=== PATIENT | female | born 1950 | race African-American/Black ===

== ENCOUNTER 2017-02-24 12:07 | Inpatient (IN) | payer MEDICARE, OTHER ==
[~2017-02-24] VITALS: Ht 162.6 cm; Wt 85.3 kg
[~2017-02-24 12:07] MED LIST: ADVAIR 250-501 EACH INH; ASPIRIN81 MG ORAL; COLACE100 MG ORAL; COMBIGAN EYE DRO5 ML OP; HYDROCHLOROTH12.5 M2 ORAL; IBUPROFEN200 MG ORAL; LEVAQUIN250 M1 ORAL; LEVAQUIN500 MG ORAL; MEDROL DOSEPAK4 MG ORAL; METFORMIN HCL500 M1 ORAL; METHADONE HCL10 MG PO; MIRALAX17 GM ORAL; MUCINEX600 MG ORAL; OXYCODONE HCL30 MG ORAL; PROAIR HFA8.5 GM INH; PROMETHAZINE-C118 M1 ORAL; PROTONIX40 MG ORAL; SENOKOT8.6 MG ORAL; SPIRIVA18 MCG INH
[2017-02-24 13:53] VITALS: BP 129/81
[2017-02-24 14:00] LABS: APPEARANCE,URINE CLEAR; EOSINOPHILS % (AUTO) 2.2 % (0.0-3.0); KETONES,URINE NEGATIVE (NEGATIVE); LYMPHOCYTES % (AUTO) 33.1 % (20.0-45.0); MEAN CORPUSCULAR HEMOGLOBIN 28.3 PG (27.0-31.0); MEAN CORPUSCULAR HGB CONC 31.3 G/DL (32.0-36.0); MEAN CORPUSCULAR VOLUME 90 FL (80-99); MEAN PLATELET VOLUME 6.2 FL (6.5-10.1); MONOCYTES % (AUTO) 6.6 % (1.0-10.0); NITRITE,URINE NEGATIVE (NEGATIVE); PH,URINE 6.5 (4.5-8.0); PLATELET COUNT 307 K/UL (150-450); PROTEIN,URINE NEGATIVE (NEGATIVE); RED BLOOD COUNT 4.97 M/UL (4.20-5.40); RED CELL DISTRIBUTION WIDTH 13.2 % (11.6-14.8); UROBILINOGEN,URINE NORMAL MG/DL (0.0-1.0); WHITE BLOOD COUNT 11.2 K/UL (4.8-10.8)
[2017-02-24] MEDS ORDERED: cefTRIAXone 1 GM in NS 55 ML IVPB ONE (14:00)
[2017-02-24] MEDS ORDERED: Ipratropium 0.02% Inh Soln 2.5ml UD HHN ONE (14:00)
[2017-02-24] MEDS ORDERED: Albuterol ud Inhalation HHN ONE (14:00)
[2017-02-24] MEDS ORDERED: PredniSONE 20mg tab ORAL ONE (14:00)
--- NOTE | 2017-02-24 14:07 | Diagnostic Imaging Report ---
Indication: Shortness of breath Technique: Single portable AP view of the chest. Findings: Comparison: 11/26/15 The bones and extra pulmonary soft tissues, cardiomediastinal silhouette, pulmonary vasculature and parenchyma, and pleural surfaces remain unremarkable. IMPRESSION: Negative portable AP chest, unchanged.
[2017-02-24 14:09] LABS: LEUKOCYTE ESTERASE ,URINE 1+ (NEGATIVE)
[2017-02-24 14:10] LABS: BACTERIA,URINE OCCASIONAL /HPF; RBC,URINE 0-2 /HPF (0 - 2); SQUAMOUS EPITHELIAL CELL,UR OCCASIONAL /LPF (NONE/OCC)
[2017-02-24 14:13] LABS: TROPONIN I < 0.30 ng/mL (<=0.30)
[2017-02-24 14:14] LABS: ALANINE AMINOTRANSFERASE 20 U/L (3-33); ALBUMIN/GLOBULIN RATIO 1.3 (1.0-2.7); ANION GAP 13 (5-15); ASPARTATE AMINO TRANSFERASE 16 U/L (5-40); CALCIUM 9.2 mg/dL (8.6-10.2); CARBON DIOXIDE 28 mEQ/L (20-30); CHLORIDE 99 mEQ/L (98-107); CREATININE 0.6 mg/dL (0.5-0.9); GLOMERULAR FILTRATION RATE > 60 mL/min (>60); HEMOLYSIS 2; POTASSIUM 3.6 mEQ/L (3.4-4.9); SODIUM 140 mEQ/L (135-145); TOTAL PROTEIN 6.7 g/dL (6.6-8.7)
[2017-02-24 14:25] LABS: CKMB < 1.5 ng/mL (< 3.8)
--- NOTE | 2017-02-24 14:46 | Emergency Room Report ---
History of Present Illness General Chief Complaint: Dyspnea/Respdistress Source: Patient Present Illness HPI This patient has a history of COPD and CHF. She states that for the past 10 days she is having ongoing cough, congestion or sputum production and difficulty breathing. The patient states that she did see her primary care provider. She is placed on prednisone, azithromycin and does use breathing treatments at home. She states that her symptoms continue and are out of control. Patient denies fever or chills. She denies nausea or vomiting. She denies chest pain. She has no other complaints. Allergies: Coded Allergies: Dust (Verified Allergy, Mild, 04/18/11) METRONIDAZOLE (Verified Allergy, Mild, Itching, 11/18/14) LEVOFLOXACIN (Verified Adverse Reaction, Intermediate, 05/30/15) PROJECTILE VOMITING PER PATIENT STATEMENT. MORPHINE (Verified Adverse Reaction, Mild, 05/30/15) pain Patient History Past Medical History: see triage record, HTN, CA, CAD, CHF, asthma, COPD, other - HCV Past Surgical History: zaki Social History: Denies: alcohol use, drug use, smoking Last Menstrual Period: na Reviewed Nursing Documentation: PMH: Agreed, PSxH: Agreed Nursing Documentation-PMH Past Medical History: No History, Except For Hx Cardiac Problems: Yes - chf Hx Hypertension: Yes Hx Asthma: Yes Hx COPD: Yes Hx Diabetes: Yes Hx Cancer: No Hx Gastrointestinal Problems: Yes Hx Neurological Problems: No Hx Vertigo: Yes - fell 2 yrs ago Review of Systems All Other Systems: negative except mentioned in HPI Physical Exam Vital Signs Date Time Temp Pulse Resp B/P Pulse Ox O2 Delivery O2 Flow Rate FiO2 02/24/17 12:13 97.5 72 18 105/68 97 Room Air Sp02 EP Interpretation: reviewed, normal General Appearance: no apparent distress, alert, GCS 15, non-toxic Head: normocephalic, atraumatic Eyes: bilateral eye PERRL, bilateral eye normal inspection ENT: hearing grossly normal, normal pharynx, no angioedema, normal voice Neck: full range of motion, supple/symm/no masses Respiratory: chest non-tender, speaking full sentences, wheezing Cardiovascular #1: regular rate, rhythm, no edema Gastrointestinal: normal bowel sounds, non tender, soft, non-distended, no guarding, no rebound Rectal: deferred Musculoskeletal: back normal, gait/station normal, normal range of motion, non- tender Neurologic: alert, oriented x3, responsive, motor strength/tone normal, sensory intact, speech normal Psychiatric: judgement/insight normal, memory normal, mood/affect normal, no suicidal/homicidal ideation Skin: normal color, no rash, warm/dry, well hydrated Medical Decision Making Diagnostic Impression: Primary Impression: COPD exacerbation ER Course This patient presents with COPD exacerbation. The patient has had ongoing symptoms for the past 10 days that she feels worsening shortness of breath. She states she is also using nebulizer breathing treatments at home without relief. She was given breathing treatments here in the emergency department and steroids. I also gave broad-spectrum antibiotics. The patient does have wheezing on physical exam. I felt this patient should be admitted for further pulmonary hygiene and monitoring. Patient did remain stable emergency department. Labs Test 02/24/17 13:40 White Blood Count 11.2 K/UL (4.8-10.8) Red Blood Count 4.97 M/UL (4.20-5.40) Hemoglobin 14.1 G/DL (12.0-16.0) Hematocrit 44.9 % (37.0-47.0) Mean Corpuscular Volume 90 FL (80-99) Mean Corpuscular Hemoglobin 28.3 PG (27.0-31.0) Mean Corpuscular Hemoglobin Concent 31.3 G/DL (32.0-36.0) Red Cell Distribution Width 13.2 % (11.6-14.8) Platelet Count 307 K/UL (150-450) Mean Platelet Volume 6.2 FL (6.5-10.1) Neutrophils (%) (Auto) 57.0 % (45.0-75.0) Lymphocytes (%) (Auto) 33.1 % (20.0-45.0) Monocytes (%) (Auto) 6.6 % (1.0-10.0) Eosinophils (%) (Auto) 2.2 % (0.0-3.0) Basophils (%) (Auto) 1.0 % (0.0-2.0) Urine Color Pale yellow Urine Appearance Clear Urine pH 6.5 (4.5-8.0) Urine Specific [place] 1.015 (1.005-1.035) Urine Protein Negative (NEGATIVE) Urine Glucose (UA) Negative (NEGATIVE) Urine Ketones Negative (NEGATIVE) Urine Occult Blood Negative (NEGATIVE) Urine Nitrite Negative (NEGATIVE) Urine Bilirubin Negative (NEGATIVE) Urine Urobilinogen Normal MG/DL (0.0-1.0) Urine Leukocyte Esterase 1+ (NEGATIVE) Urine RBC 0-2 /HPF (0 - 2) Urine WBC 2-4 /HPF (0 - 2) Urine Squamous Epithelial Cells Occasional /LPF Urine Bacteria Occasional /HPF (NONE) Sodium Level 140 mEQ/L (135-145) Potassium Level 3.6 mEQ/L (3.4-4.9) Chloride Level 99 mEQ/L (98-107) Carbon Dioxide Level 28 mEQ/L (20-30) Anion Gap 13 (5-15) Blood Urea Nitrogen 10 mg/dL (7-23) Creatinine 0.6 mg/dL (0.5-0.9) Estimat Glomerular Filtration Rate > 60 mL/min (>60) Glucose Level 96 mg/dL (74-106) Calcium Level 9.2 mg/dL (8.6-10.2) Total Bilirubin 0.6 mg/dL (0.0-1.2) Aspartate Amino Transf (AST/SGOT) 16 U/L (5-40) Alanine Aminotransferase (ALT/SGPT) 20 U/L (3-33) Alkaline Phosphatase 165 U/L (35-104) Total Creatine Kinase 73 U/L (26-140) Creatine Kinase MB < 1.5 ng/mL (< 3.8) Creatine Kinase MB Relative Index Troponin I < 0.30 ng/mL (<=0.30) Pro-B-Type Natriuretic Peptide 59 pg/mL (0-125) Total Protein 6.7 g/dL (6.6-8.7) Albumin 3.8 g/dL (3.5-5.2) Globulin 2.9 g/dL Albumin/Globulin Ratio 1.3 (1.0-2.7) EKG Diagnostic Results Rate: normal Rhythm: NSR ST Segments: no acute changes Rhythm Strip Diag. Results EP Interpretation: yes Rate: 60's Rhythm: NSR, no PVC's, no ectopy Chest X-Ray Diagnostic Results EP Interpretation: Yes Findings: no consolidation, no effusion, no pneumothorax, no acute cardiopulmonary disease Number of Views: 1 Last Vital Signs Date Time Temp Pulse Resp B/P Pulse Ox O2 Delivery O2 Flow Rate FiO2 02/24/17 14:10 67 18 Room Air 02/24/17 14:10 100 02/24/17 13:53 129/81 02/24/17 12:13 97.5 Disposition: ADMITTED INPATIENT Condition: Serious Referrals: DOYLE MENJIVAR (PCP) MENDOZA ROJAS D.O. February 24, 2017 14:46
[2017-02-24] MEDS ORDERED: NS 55 ML IV ONE (15:08)
[2017-02-24] MEDS ORDERED: Nitroglycerin Subl 0.4mg tab (Bottle Of 25) SL PRN (16:00)
[2017-02-24] MEDS ORDERED: Promethazine/Codeine 5ml UD ORAL PRN (16:00)
[2017-02-24] MEDS ORDERED: Miralax 17gm pkt ORAL PRN (16:00)
[2017-02-24] MEDS ORDERED: LORazepam Inj 2mg/ml 1ml IV PRN (16:00)
[2017-02-24] MEDS: Promethazine/Codeine 5ml UD ORAL PRN ×3 (16:51→22:59)
[2017-02-24] MEDS ORDERED: Promethazine/Codeine 5ml UD ORAL ONE (17:00)
[2017-02-24] MEDS: NovoLOG Insulin Flexpen SUBQ SCH ×2 (17:36→21:49)
[2017-02-24 17:44] VITALS: BP 111/43
[2017-02-24] MEDS: Solu-MEDROL 125mg Inj IV SCH ×2 (18:40→23:48)
[2017-02-24] MEDS: Heparin 5000 units/ml inj SUBQ SCH (21:00)
[2017-02-24] MEDS: Theophylline ER 100mg ORAL SCH (21:50)
--- NOTE | 2017-02-24 21:53 | History and Physical ---
History of Present Illness General Date patient seen: February 24, 2017 Reason for Hospitalization: Dyspnea/Respdistress Present Illness HPI 66 year old female with a history of COPD and CHF presented to [facility] [place] [facility] [place] with CC of ongoing cough, congestion or sputum production and difficulty breathing. The patient states that she did see her primary care provider. She was placed on prednisone, azithromycin and does use breathing treatments at home. She states that her symptoms continue and are out of control. Patient denies fever or chills. She denies nausea or vomiting. She was diagnosed to have acute exacerbation of COPD and admitted for further evaluation. Allergies: Coded Allergies: Dust (Verified Allergy, Mild, 04/18/11) METRONIDAZOLE (Verified Allergy, Mild, Itching, 11/18/14) LEVOFLOXACIN (Verified Adverse Reaction, Intermediate, 05/30/15) PROJECTILE VOMITING PER PATIENT STATEMENT. MORPHINE (Verified Adverse Reaction, Mild, 05/30/15) pain Medication History Scheduled Aspirin* (Aspirin*), 81 MG ORAL DAILY, (Reported) Docusate Sodium* (Colace*), 100 MG ORAL EVERY 12 HOURS Fluticasone/Salmeterol (Advair 250-50 Diskus), 1 PUFF INH EVERY 12 HOURS Guaifenesin (Mucinex), 600 MG ORAL TWICE A DAY Hydrochlorothiazide* (Hydrochlorothiazide*), 12.5 MG ORAL DAILY, (Reported) Levofloxacin* (Levaquin*), 500 MG ORAL DAILY Levofloxacin* (Levaquin*), 250 MG ORAL DAILY Metformin Hcl* (Metformin Hcl*), 500 MG ORAL TWICE A DAY, (Reported) Methadone Hcl* (Methadone*), 10 MG PO HS, (Reported) Methylprednisolone (Methylprednisolone*), 4 MG ORAL .as directed Methylprednisolone (Methylprednisolone*), 4 MG ORAL .as directed Tiotropium Gustine* (Spiriva*), 1 PUFF INH DAILY Scheduled PRN Albuterol Sulfate* (Proair Hfa*), 2 PUFFS INH EVERY 6 HOURS PRN for Shortness of Breath, (Reported) Codeine/Promethazine Hcl* (Promethazine-Codeine Syrup*), 5 ML ORAL Q4H PRN for For Cough Oxycodone Hcl (Oxycodone Hcl), 20 MG ORAL Q6H PRN for For Pain, (Reported) Polyethylene Glycol* (Miralax*), 17 GM ORAL HSPRN PRN for Constipation Sennosides (Senokot), 1 TAB ORAL DAILY PRN for Constipation Miscellaneous Medications Brimonidine Tartrate/Timolol (Combigan Eye Drops), 5 ML OP, (Reported) Patient History Healthcare decision maker Resuscitation status Advanced Directive on File Past Medical/Surgical History Past Medical/Surgical History: (1) HTN (hypertension) (2) Diabetes mellitus (3) Chronic pain Review of Systems Respiratory: Reports: shortness of breath, sputum, wheezing All Other Systems: negative except mentioned in HPI Physical Exam Lines, tubes and drains: peripheral HEENT: normocephalic, atraumatic Neck: non-tender, normal alignment Respiratory/Chest: chest wall non-tender, lungs clear Cardiovascular/Chest: normal peripheral pulses, regular rhythm Abdomen: normal bowel sounds Genitourinary/Rectal: normal genital exam Last 24 Hour Vital Signs Date Time Temp Pulse Resp B/P Pulse Ox O2 Delivery O2 Flow Rate FiO2 02/24/17 17:45 97.5 83 15 111/43 97 Room Air 02/24/17 17:44 83 15 111/43 97 Room Air 02/24/17 14:25 69 20 100 Room Air 02/24/17 14:10 67 18 Room Air 02/24/17 14:10 67 18 100 Room Air 02/24/17 13:53 72 16 129/81 97 Room Air 02/24/17 12:30 72 18 Room Air 02/24/17 12:13 97.5 72 18 105/68 97 Room Air Laboratory Tests Test 02/24/17 13:40 White Blood Count 11.2 K/UL (4.8-10.8) H Red Blood Count 4.97 M/UL (4.20-5.40) Hemoglobin 14.1 G/DL (12.0-16.0) Hematocrit 44.9 % (37.0-47.0) Mean Corpuscular Volume 90 FL (80-99) Mean Corpuscular Hemoglobin 28.3 PG (27.0-31.0) Mean Corpuscular Hemoglobin Concent 31.3 G/DL (32.0-36.0) L Red Cell Distribution Width 13.2 % (11.6-14.8) Platelet Count 307 K/UL (150-450) Mean Platelet Volume 6.2 FL (6.5-10.1) L Neutrophils (%) (Auto) 57.0 % (45.0-75.0) Lymphocytes (%) (Auto) 33.1 % (20.0-45.0) Monocytes (%) (Auto) 6.6 % (1.0-10.0) Eosinophils (%) (Auto) 2.2 % (0.0-3.0) Basophils (%) (Auto) 1.0 % (0.0-2.0) Urine Color Pale yellow Urine Appearance Clear Urine pH 6.5 (4.5-8.0) Urine Specific [place] 1.015 (1.005-1.035) Urine Protein Negative (NEGATIVE) Urine Glucose (UA) Negative (NEGATIVE) Urine Ketones Negative (NEGATIVE) Urine Occult Blood Negative (NEGATIVE) Urine Nitrite Negative (NEGATIVE) Urine Bilirubin Negative (NEGATIVE) Urine Urobilinogen Normal MG/DL (0.0-1.0) Urine Leukocyte Esterase 1+ (NEGATIVE) H Urine RBC 0-2 /HPF (0 - 2) Urine WBC 2-4 /HPF (0 - 2) Urine Squamous Epithelial Cells Occasional /LPF Urine Bacteria Occasional /HPF (NONE) Sodium Level 140 mEQ/L (135-145) Potassium Level 3.6 mEQ/L (3.4-4.9) Chloride Level 99 mEQ/L (98-107) Carbon Dioxide Level 28 mEQ/L (20-30) Anion Gap 13 (5-15) Blood Urea Nitrogen 10 mg/dL (7-23) Creatinine 0.6 mg/dL (0.5-0.9) Estimat Glomerular Filtration Rate > 60 mL/min (>60) Glucose Level 96 mg/dL (74-106) Calcium Level 9.2 mg/dL (8.6-10.2) Total Bilirubin 0.6 mg/dL (0.0-1.2) Aspartate Amino Transf (AST/SGOT) 16 U/L (5-40) Alanine Aminotransferase (ALT/SGPT) 20 U/L (3-33) Alkaline Phosphatase 165 U/L (35-104) H Total Creatine Kinase 73 U/L (26-140) Creatine Kinase MB < 1.5 ng/mL (< 3.8) Creatine Kinase MB Relative Index Troponin I < 0.30 ng/mL (<=0.30) Pro-B-Type Natriuretic Peptide 59 pg/mL (0-125) Total Protein 6.7 g/dL (6.6-8.7) Albumin 3.8 g/dL (3.5-5.2) Globulin 2.9 g/dL Albumin/Globulin Ratio 1.3 (1.0-2.7) Height (Feet): 5 Height (Inches): 4.00 Weight (Pounds): 183 Medications Current Medications Medications (Trade) Dose Ordered Sig/Ranulfo Route PRN Reason Start Time Stop Time Status Last Admin Dose Admin Acetaminophen (Tylenol) 650 mg Q4H PRN ORAL fever 02/24/17 16:00 03/26/17 15:59 Albuterol/ Ipratropium (DuoNeb 0.5-3(2.5)mg/3ml) 3 ml Q4H PRN HHN dyspnea 02/24/17 16:00 03/01/17 15:59 Clonidine HCl (Catapres) 0.1 mg Q4H PRN ORAL sbp more than 160 02/24/17 16:00 03/26/17 15:59 Dextrose (Dextrose 50%) STAT PRN IV Hypoglycemia 02/24/17 16:00 03/26/17 15:59 Dextrose (Dextrose 50%) STAT PRN IV Hypoglycemia 02/24/17 16:00 03/26/17 15:59 Heparin Sodium (Porcine) (Heparin 5000 units/ml) 5,000 units EVERY 12 HOURS SUBQ 02/24/17 21:00 03/26/17 20:59 Insulin Aspart (NovoLOG) BEFORE MEALS AND HS SUBQ 02/24/17 17:30 03/26/17 17:29 02/24/17 21:49 Lorazepam (Ativan 2mg/ml 1ml) 0.5 mg Q4H PRN IV For Anxiety 02/24/17 16:00 03/03/17 15:59 Methylprednisolone Sodium Succinate (Solu-MEDROL) 60 mg EVERY 6 HOURS IV 02/24/17 18:00 03/26/17 17:59 02/24/17 18:40 Nitroglycerin (Ntg) 0.4 mg Q5M X 3 DOSES PRN SL Prn Chest Pain 02/24/17 16:00 03/26/17 15:59 Ondansetron HCl (Zofran) 4 mg Q6H PRN IVP Nausea & Vomiting 02/24/17 16:00 6/7/17 15:59 Polyethylene Glycol (Miralax) 17 gm HSPRN PRN ORAL Constipation FIRST LINE AGENT 02/24/17 16:00 03/26/17 15:59 Promethazine HCl/ Codeine (Phenergan with Codeine) 5 ml Q4H PRN ORAL For Cough 02/24/17 16:00 03/26/17 15:59 02/24/17 16:51 Sennosides (Senokot) 8.6 mg DAILYPRN PRN ORAL Constipation SECOND LINE AGENT 02/24/17 16:00 03/26/17 15:59 Temazepam (Restoril) 15 mg HSPRN PRN ORAL Insomnia 02/24/17 16:00 03/03/17 15:59 Theophylline (Matthew-Dur) 100 mg EVERY 12 HOURS ORAL 02/24/17 21:00 03/26/17 20:59 02/24/17 21:50 Assessment/Plan Problem List: (1) COPD exacerbation ICD Codes: J44.1 - Obstructive chronic bronchitis with exacerbation SNOMED: 420479397 (2) Chronic pain ICD Codes: G89.29 - Chronic pain SNOMED: 06730411 (3) HTN (hypertension) ICD Codes: I10 - HTN (hypertension) SNOMED: 95384094 (4) Diabetes mellitus ICD Codes: E11.9 - Diabetes mellitus SNOMED: 56839926 Assessment/Plan respiratory treatment IV steroids check sputum IV antibiotics monitor bp sliding scale diabetic diet DOYLE MENJIVAR February 24, 2017 21:53
[2017-02-25] VITALS: BP 117/65
[2017-02-25] MEDS: Promethazine/Codeine 5ml UD ORAL PRN ×4 (03:52→22:56)
[2017-02-25 04:00] VITALS: BP 120/72
[2017-02-25] MEDS: NovoLOG Insulin Flexpen SUBQ SCH ×4 (06:17→21:21)
[2017-02-25] MEDS: Solu-MEDROL 125mg Inj IV SCH ×4 (06:19→23:50)
[2017-02-25 07:05] LABS: ALANINE AMINOTRANSFERASE 19 U/L (3-33); ALBUMIN/GLOBULIN RATIO 1.3 (1.0-2.7); ANION GAP 13 (5-15); ASPARTATE AMINO TRANSFERASE 13 U/L (5-40); CALCIUM 9.4 mg/dL (8.6-10.2); CARBON DIOXIDE 27 mEQ/L (20-30); CHLORIDE 100 mEQ/L (98-107); CREATININE 0.7 mg/dL (0.5-0.9); GLOMERULAR FILTRATION RATE > 60 mL/min (>60); HEMOLYSIS 5; POTASSIUM 4.1 mEQ/L (3.4-4.9); SODIUM 140 mEQ/L (135-145); TOTAL PROTEIN 6.7 g/dL (6.6-8.7)
[2017-02-25 07:21] LABS: MEAN CORPUSCULAR HEMOGLOBIN 28.9 PG (27.0-31.0); MEAN CORPUSCULAR HGB CONC 32.3 G/DL (32.0-36.0); MEAN CORPUSCULAR VOLUME 89 FL (80-99); MEAN PLATELET VOLUME 5.8 FL (6.5-10.1); PLATELET COUNT 288 K/UL (150-450); RED BLOOD COUNT 4.87 M/UL (4.20-5.40); RED CELL DISTRIBUTION WIDTH 13.1 % (11.6-14.8); WHITE BLOOD COUNT 10.1 K/UL (4.8-10.8)
[2017-02-25 08:24] VITALS: BP 108/74
[2017-02-25] MEDS: Heparin 5000 units/ml inj SUBQ SCH ×2 (09:00→21:00)
[2017-02-25] MEDS: Theophylline ER 100mg ORAL SCH ×2 (09:18→21:20)
[2017-02-25 10:11] LABS: BAND NEUTROPHILS % (MANUAL) 0 % (0-8); BASOPHILS % (MANUAL) 0 % (0-2); EOSINOPHILS % (MANUAL) 0 % (0-3); LYMPHOCYTES % (MANUAL) 14 % (20-45); NEUTROPHILS % (MANUAL) 84 % (45-75); PLATELET ESTIMATE ADEQUATE; TOTAL CELLS COUNTED 100
[2017-02-25 10:12] LABS: PLATELET MORPHOLOGY NORMAL
[2017-02-25 12:00] VITALS: BP 117/70
--- NOTE | 2017-02-25 12:08 | Consultation ---
Consult Note Consult Note ID # [id number] NICK HERNANDEZ M.D. February 25, 2017 12:08
[2017-02-25] MEDS: Azithromycin 500 MG in D5W 275 ML IV SCH (13:49)
[2017-02-25 16:18] VITALS: BP 116/68
[2017-02-25 20:00] VITALS: BP 107/59
--- NOTE | 2017-02-25 22:29 | Consultation ---
DATE OF CONSULTATION: INFECTIOUS DISEASE CONSULTATION CONSULTING PHYSICIAN: Gilbert Koroma M.D. REQUESTING PHYSICIAN: Fernando Lang M.D. REASON FOR CONSULTATION: Evaluation of the patient for COPD exacerbation and antibiotic management. HISTORY OF PRESENT ILLNESS: The patient is a 66-year-old female with multiple medical problems and history of multiple admissions for COPD exacerbation, who came to the hospital with a chief complaint of shortness of breath, cough, and sputum production. Chest x-ray ordered, has been unremarkable. Infectious Disease consultation has been requested for further evaluation of the patient and antibiotic management of pneumonia/COPD exacerbation. PAST MEDICAL HISTORY: 1. COPD. 2. History of vertigo. 3. History of hypertension. 4. Asthma. 5. Obesity. 6. Status post cholecystectomy. 7. Uterine cancer. 8. Fibromyalgia. 9. Osteoarthritis. 10. Diabetes. 11. Schizophrenia. MEDICATIONS: The patient is currently off of antibiotics. She is receiving Solu-Medrol and received one dose of Rocephin in the emergency room. ALLERGIES: Levaquin, metronidazole, and morphine. FAMILY HISTORY: Noncontributory. REVIEW OF SYSTEMS: HEENT: No recent change in vision or hearing. Pulmonary: As mentioned above. Cardiovascular: No chest pain or palpitations. Gastrointestinal/Abdomen: No nausea or vomiting. Genitourinary: No dysuria. Musculoskeletal: As mentioned above. Neurologic: No seizure. PHYSICAL EXAMINATION: VITAL SIGNS: Pulse 66, respiratory rate 18, temperature 97.9 degrees, and blood pressure 108/74. HEENT: Mild pale conjunctivae. No icterus. NECK: No lymphadenopathy. CHEST: Mild wheeze at the base of the lungs. HEART: S1 and S2. ABDOMEN: Soft, obese, and nontender. EXTREMITIES: No cyanosis. NEUROLOGIC: Awake and alert. LABORATORY DATA: White blood cells 11.2 at the time of admission and today 10.2, hemoglobin 14, and platelets 288,000. UA unremarkable. BUN 12 and creatinine 0.7. ALT and AST are unremarkable. Alkaline phosphatase 172. Chest x-ray, no acute infiltrate. ASSESSMENT: The patient is a 66-year-old female with multiple medical problems, who has been admitted to this medical center with chronic obstructive pulmonary disease exacerbation/community-acquired pneumonia. The patient has quitted smoking currently. of atypical organisms at this time. PLAN: 1. We will start the patient on Zithromax for a total of five days. 2. Monitor CBC. 3. Monitor BMP. 4. Monitor chest x-ray. 5. Monitor sputum culture. 6. Based on the patient's clinical course and labs, we will do further recommendations. Thank you, Dr. Lang, for allowing me to participate in the care of this patient. I will follow the patient with you during this hospitalization. Gilbert Koroma M.D. DR: JOSTIN JOB#: [id number] CC:
[2017-02-25] MEDS: DuoNeb 0.5-3(2.5)mg/3ml neb HHN PRN (22:32)
[2017-02-26] VITALS: BP 118/93
[2017-02-26 04:00] VITALS: BP 116/79
[2017-02-26] MEDS: Solu-MEDROL 125mg Inj IV SCH ×3 (05:45→18:18)
[2017-02-26] MEDS: NovoLOG Insulin Flexpen SUBQ SCH ×4 (06:24→21:24)
[2017-02-26] MEDS: DuoNeb 0.5-3(2.5)mg/3ml neb HHN PRN (07:28)
[2017-02-26 08:00] VITALS: BP 114/63
[2017-02-26] MEDS: Promethazine/Codeine 5ml UD ORAL PRN ×2 (08:41→20:48)
[2017-02-26] MEDS: Heparin 5000 units/ml inj SUBQ SCH ×3 (08:41→21:23)
[2017-02-26] MEDS: Theophylline ER 100mg ORAL SCH ×3 (08:41→21:22)
--- NOTE | 2017-02-26 09:04 | Cardiology Report ---
APPROVED REPORT EKG Measurement Heart [id number] Normal sinus rhythm Normal ECG
[2017-02-26 12:00] VITALS: BP 120/66
[2017-02-26] MEDS: Azithromycin 500 MG in D5W 275 ML IV SCH (13:08)
[2017-02-26 16:00] VITALS: BP 113/65
--- NOTE | 2017-02-26 16:12 | Pulmonology Progress Note ---
Assessment/Plan Problems: (1) COPD exacerbation (2) Chronic pain (3) HTN (hypertension) (4) Diabetes mellitus Assessment/Plan respiratory treatment IV antibiotics iv sterids check cultures on theophyline Subjective Interval Events: late note 02/25/ still coughing , no feveres Allergies: Coded Allergies: Dust (Verified Allergy, Mild, 04/18/11) METRONIDAZOLE (Verified Allergy, Mild, Itching, 11/18/14) LEVOFLOXACIN (Verified Adverse Reaction, Intermediate, 05/30/15) PROJECTILE VOMITING PER PATIENT STATEMENT. MORPHINE (Verified Adverse Reaction, Mild, 05/30/15) pain Objective Last 24 Hour Vital Signs Date Time Temp Pulse Resp B/P Pulse Ox O2 Delivery O2 Flow Rate FiO2 02/26/17 12:00 98.1 66 19 120/66 94 Room Air 02/26/17 08:00 97.9 93 16 114/63 97 Room Air 02/26/17 07:29 Nasal Cannula 2.0 28 02/26/17 07:29 98 Nasal Cannula 2.0 28 02/26/17 07:28 64 20 98 Nasal Cannula 2.0 28 02/26/17 07:28 64 20 Nasal Cannula 2.0 28 02/26/17 04:00 97.0 80 17 116/79 100 Room Air 02/26/17 00:00 97.0 98 16 118/93 94 Room Air 02/25/17 22:44 87 22 99 Nasal Cannula 2.0 02/25/17 22:31 85 18 98 Nasal Cannula 2.0 02/25/17 20:35 Nasal Cannula 2.0 02/25/17 20:00 85 18 Nasal Cannula 2.0 02/25/17 20:00 97.7 89 17 107/59 98 Room Air 02/25/17 19:30 97 Nasal Cannula 2.0 28 02/25/17 16:18 98.2 96 16 116/68 97 Room Air Intake and Output 02/25/17 02/26/17 19:00 07:00 Intake Total 2000 ml Balance 2000 ml Intake Oral 2000 ml # Voids 4 2 # Bowel Movements 1 Objective General Appearance: WD/WN HEENT: normocephalic Respiratory/Chest: chest wall non-tender, lungs clear Cardiovascular: normal peripheral pulses, regular rhythm Abdomen: normal bowel sounds, soft, non tender Genitourinary: normal external genitalia Extremities: no cyanosis, no clubbing Skin: no rash Lymphatic: no neck adenopathy, no groin adenopathy Microbiology Date/Time Source Procedure Growth Status 02/25/17 23:00 Sputum Gram Stain - Final Resulted 02/25/17 23:00 Sputum Sputum Culture Pending Resulted Current Medications Medications (Trade) Dose Ordered Sig/Ranuflo Route PRN Reason Start Time Stop Time Status Last Admin Dose Admin Acetaminophen (Tylenol) 650 mg Q4H PRN ORAL fever 02/24/17 16:00 03/26/17 15:59 Albuterol/ Ipratropium (DuoNeb 0.5-3(2.5)mg/3ml) 3 ml Q4H PRN HHN dyspnea 02/24/17 16:00 03/01/17 15:59 02/26/17 07:28 Azithromycin/ Dextrose (Zithromax/D5W) 275 ml @ 275 mls/hr Q24HRS IV 02/25/17 14:00 03/03/17 14:59 02/26/17 13:08 Clonidine HCl (Catapres) 0.1 mg Q4H PRN ORAL sbp more than 160 02/24/17 16:00 03/26/17 15:59 Dextrose STAT PRN IV Hypoglycemia 02/24/17 16:00 03/26/17 15:59 Heparin Sodium (Porcine) (Heparin 5000 units/ml) 5,000 units EVERY 12 HOURS SUBQ 02/24/17 21:00 03/26/17 20:59 Insulin Aspart (NovoLOG) BEFORE MEALS AND HS SUBQ 02/24/17 17:30 03/26/17 17:29 02/26/17 12:15 Lorazepam (Ativan 2mg/ml 1ml) 0.5 mg Q4H PRN IV For Anxiety 02/24/17 16:00 03/03/17 15:59 Methylprednisolone Sodium Succinate (Solu-MEDROL) 60 mg EVERY 6 HOURS IV 02/24/17 18:00 03/26/17 17:59 02/26/17 13:08 Nitroglycerin (Ntg) 0.4 mg Q5M X 3 DOSES PRN SL Prn Chest Pain 02/24/17 16:00 03/26/17 15:59 Ondansetron HCl (Zofran) 4 mg Q6H PRN IVP Nausea & Vomiting 02/24/17 16:00 03/26/17 15:59 Polyethylene Glycol (Miralax) 17 gm HSPRN PRN ORAL Constipation FIRST LINE AGENT 02/24/17 16:00 03/26/17 15:59 Promethazine HCl/ Codeine (Phenergan with Codeine) 5 ml Q4H PRN ORAL For Cough 02/24/17 16:00 03/26/17 15:59 02/26/17 08:41 Sennosides (Senokot) 8.6 mg DAILYPRN PRN ORAL Constipation SECOND LINE AGENT 02/24/17 16:00 03/26/17 15:59 Temazepam (Restoril) 15 mg HSPRN PRN ORAL Insomnia 02/24/17 16:00 03/03/17 15:59 Theophylline (Matthew-Dur) 100 mg EVERY 12 HOURS ORAL 02/24/17 21:00 03/26/17 20:59 02/25/17 21:20 DOYLE MENJIVAR February 26, 2017 16:12
--- NOTE | 2017-02-26 16:13 | Pulmonology Progress Note ---
Assessment/Plan Problems: (1) COPD exacerbation (2) Chronic pain (3) HTN (hypertension) (4) Diabetes mellitus Assessment/Plan respiratory treatment IV antibiotics iv sterids check cultures on theophyline no cultures yet dc home in am Subjective ROS Limited/Unobtainable: No Interval Events: feeling better Allergies: Coded Allergies: Dust (Verified Allergy, Mild, 04/18/11) METRONIDAZOLE (Verified Allergy, Mild, Itching, 11/18/14) LEVOFLOXACIN (Verified Adverse Reaction, Intermediate, 05/30/15) PROJECTILE VOMITING PER PATIENT STATEMENT. MORPHINE (Verified Adverse Reaction, Mild, 05/30/15) pain Objective Last 24 Hour Vital Signs Date Time Temp Pulse Resp B/P Pulse Ox O2 Delivery O2 Flow Rate FiO2 02/26/17 12:00 98.1 66 19 120/66 94 Room Air 02/26/17 08:00 97.9 93 16 114/63 97 Room Air 02/26/17 07:29 Nasal Cannula 2.0 28 02/26/17 07:29 98 Nasal Cannula 2.0 28 02/26/17 07:28 64 20 98 Nasal Cannula 2.0 28 02/26/17 07:28 64 20 Nasal Cannula 2.0 28 02/26/17 04:00 97.0 80 17 116/79 100 Room Air 02/26/17 00:00 97.0 98 16 118/93 94 Room Air 02/25/17 22:44 87 22 99 Nasal Cannula 2.0 02/25/17 22:31 85 18 98 Nasal Cannula 2.0 02/25/17 20:35 Nasal Cannula 2.0 28 02/25/17 20:00 85 18 Nasal Cannula 2.0 02/25/17 20:00 97.7 89 17 107/59 98 Room Air 02/25/17 19:30 97 Nasal Cannula 2.0 28 02/25/17 16:18 98.2 96 16 116/68 97 Room Air Intake and Output 02/25/17 02/26/17 19:00 07:00 Intake Total 2000 ml Balance 2000 ml Intake Oral 2000 ml # Voids 4 2 # Bowel Movements 1 Objective General Appearance: WD/WN HEENT: normocephalic Respiratory/Chest: chest wall non-tender, lungs clear Cardiovascular: normal peripheral pulses, regular rhythm Abdomen: normal bowel sounds, soft, non tender Genitourinary: normal external genitalia Extremities: no cyanosis, no clubbing Skin: no rash Lymphatic: no neck adenopathy, no groin adenopathy Microbiology Date/Time Source Procedure Growth Status 02/25/17 23:00 Sputum Gram Stain - Final Resulted 02/25/17 23:00 Sputum Sputum Culture Pending Resulted Current Medications Medications (Trade) Dose Ordered Sig/Ranulfo Route PRN Reason Start Time Stop Time Status Last Admin Dose Admin Acetaminophen (Tylenol) 650 mg Q4H PRN ORAL fever 02/24/17 16:00 03/26/17 15:59 Albuterol/ Ipratropium (DuoNeb 0.5-3(2.5)mg/3ml) 3 ml Q4H PRN HHN dyspnea 02/24/17 16:00 03/01/17 15:59 02/26/17 07:28 Azithromycin/ Dextrose (Zithromax/D5W) 275 ml @ 275 mls/hr Q24HRS IV 02/25/17 14:00 03/03/17 14:59 02/26/17 13:08 Clonidine HCl (Catapres) 0.1 mg Q4H PRN ORAL sbp more than 160 02/24/17 16:00 03/26/17 15:59 Dextrose STAT PRN IV Hypoglycemia 02/24/17 16:00 03/26/17 15:59 Heparin Sodium (Porcine) (Heparin 5000 units/ml) 5,000 units EVERY 12 HOURS SUBQ 02/24/17 21:00 03/26/17 20:59 Insulin Aspart (NovoLOG) BEFORE MEALS AND HS SUBQ 02/24/17 17:30 03/26/17 17:29 02/26/17 12:15 Lorazepam (Ativan 2mg/ml 1ml) 0.5 mg Q4H PRN IV For Anxiety 02/24/17 16:00 03/03/17 15:59 Methylprednisolone Sodium Succinate (Solu-MEDROL) 60 mg EVERY 6 HOURS IV 02/24/17 18:00 03/26/17 17:59 02/26/17 13:08 Nitroglycerin (Ntg) 0.4 mg Q5M X 3 DOSES PRN SL Prn Chest Pain 02/24/17 16:00 03/26/17 15:59 Ondansetron HCl (Zofran) 4 mg Q6H PRN IVP Nausea & Vomiting 02/24/17 16:00 03/26/17 15:59 Polyethylene Glycol (Miralax) 17 gm HSPRN PRN ORAL Constipation FIRST LINE AGENT 02/24/17 16:00 03/26/17 15:59 Promethazine HCl/ Codeine (Phenergan with Codeine) 5 ml Q4H PRN ORAL For Cough 02/24/17 16:00 03/26/17 15:59 02/26/17 08:41 Sennosides (Senokot) 8.6 mg DAILYPRN PRN ORAL Constipation SECOND LINE AGENT 02/24/17 16:00 03/26/17 15:59 Temazepam (Restoril) 15 mg HSPRN PRN ORAL Insomnia 02/24/17 16:00 03/03/17 15:59 Theophylline (Matthew-Dur) 100 mg EVERY 12 HOURS ORAL 02/24/17 21:00 03/26/17 20:59 02/25/17 21:20 DOYLE MENJIVAR February 26, 2017 16:13
[2017-02-26 21:00] VITALS: BP 113/63
--- NOTE | 2017-02-26 21:07 | Infectious Diseases Prog Note ---
Assessment/Plan Assessment/Plan :A The patient is a 66-year-old female with COPD exacerbation SOB, cough, and sputum production. Chest x-ray: NAPD History of vertigo. HTN Asthma Obesity Status post cholecystectomy. Uterine cancer Fibromyalgia Osteoarthritis Diabetes Schizophrenia PLAN: Cont on Zithromax d # 2 / 5 Monitor CBC Monitor BMP Monitor chest x-ray Monitor sputum culture Subjective Constitutional: Denies: anorexia, chills, drenching sweats, fatigue, fever, no symptoms, other Allergies: Coded Allergies: Dust (Verified Allergy, Mild, 04/18/11) METRONIDAZOLE (Verified Allergy, Mild, Itching, 11/18/14) LEVOFLOXACIN (Verified Adverse Reaction, Intermediate, 05/30/15) PROJECTILE VOMITING PER PATIENT STATEMENT. MORPHINE (Verified Adverse Reaction, Mild, 05/30/15) pain Objective Vital Signs Last 24 Hour Vital Signs Date Time Temp Pulse Resp B/P Pulse Ox O2 Delivery O2 Flow Rate FiO2 02/26/17 19:07 98 Nasal Cannula 2.0 28 02/26/17 19:07 Nasal Cannula 2.0 28 02/26/17 19:06 87 18 Nasal Cannula 2.0 28 02/26/17 16:00 97.7 91 20 113/65 95 Room Air 02/26/17 12:00 98.1 66 19 120/66 94 Room Air 02/26/17 08:00 97.9 93 16 114/63 97 Room Air 02/26/17 07:29 Nasal Cannula 2.0 28 02/26/17 07:29 98 Nasal Cannula 2.0 28 02/26/17 07:28 64 20 98 Nasal Cannula 2.0 28 02/26/17 07:28 64 20 Nasal Cannula 2.0 28 02/26/17 04:00 97.0 80 17 116/79 100 Room Air 02/26/17 00:00 97.0 98 16 118/93 94 Room Air 02/25/17 22:44 87 22 99 Nasal Cannula 2.0 28 02/25/17 22:31 85 18 98 Nasal Cannula 2.0 28 Height (Feet): 5 Height (Inches): 4.00 Weight (Pounds): 188 Respiratory/Chest: no respiratory distress Cardiovascular: regular rhythm Abdomen: no organomegaly Microbiology Date/Time Source Procedure Growth Status 02/25/17 23:00 Sputum Gram Stain - Final Resulted 02/25/17 23:00 Sputum Sputum Culture Pending Resulted Current Medications Medications (Trade) Dose Ordered Sig/Ranulfo Route PRN Reason Start Time Stop Time Status Last Admin Dose Admin Acetaminophen (Tylenol) 650 mg Q4H PRN ORAL fever 02/24/17 16:00 03/26/17 15:59 Albuterol/ Ipratropium (DuoNeb 0.5-3(2.5)mg/3ml) 3 ml Q4H PRN HHN dyspnea 02/24/17 16:00 03/01/17 15:59 02/26/17 07:28 Azithromycin/ Dextrose (Zithromax/D5W) 275 ml @ 275 mls/hr Q24HRS IV 02/25/17 14:00 03/03/17 14:59 02/26/17 13:08 Clonidine HCl (Catapres) 0.1 mg Q4H PRN ORAL sbp more than 160 02/24/17 16:00 03/26/17 15:59 Dextrose STAT PRN IV Hypoglycemia 02/24/17 16:00 03/26/17 15:59 Heparin Sodium (Porcine) (Heparin 5000 units/ml) 5,000 units EVERY 12 HOURS SUBQ 02/24/17 21:00 03/26/17 20:59 Insulin Aspart (NovoLOG) BEFORE MEALS AND HS SUBQ 02/24/17 17:30 03/26/17 17:29 02/26/17 18:21 Lorazepam (Ativan 2mg/ml 1ml) 0.5 mg Q4H PRN IV For Anxiety 02/24/17 16:00 03/03/17 15:59 Methylprednisolone Sodium Succinate (Solu-MEDROL) 60 mg EVERY 6 HOURS IV 02/24/17 18:00 03/26/17 17:59 02/26/17 18:18 Nitroglycerin (Ntg) 0.4 mg Q5M X 3 DOSES PRN SL Prn Chest Pain 02/24/17 16:00 03/26/17 15:59 Ondansetron HCl (Zofran) 4 mg Q6H PRN IVP Nausea & Vomiting 02/24/17 16:00 03/26/17 15:59 Polyethylene Glycol (Miralax) 17 gm HSPRN PRN ORAL Constipation FIRST LINE AGENT 02/24/17 16:00 03/26/17 15:59 Promethazine HCl/ Codeine (Phenergan with Codeine) 5 ml Q4H PRN ORAL For Cough 02/24/17 16:00 03/26/17 15:59 02/26/17 20:48 Sennosides (Senokot) 8.6 mg DAILYPRN PRN ORAL Constipation SECOND LINE AGENT 02/24/17 16:00 03/26/17 15:59 Temazepam (Restoril) 15 mg HSPRN PRN ORAL Insomnia 02/24/17 16:00 03/03/17 15:59 Theophylline (Matthew-Dur) 100 mg EVERY 12 HOURS ORAL 02/24/17 21:00 03/26/17 20:59 02/25/17 21:20 NICK HERNANDEZ M.D. February 26, 2017 21:07
[2017-02-27] VITALS: BP 93/61
[2017-02-27] MEDS: Solu-MEDROL 125mg Inj IV SCH ×3 (01:13→11:34)
[2017-02-27] MEDS: Promethazine/Codeine 5ml UD ORAL PRN ×2 (01:21→11:32)
[2017-02-27 04:00] VITALS: BP 109/74
[2017-02-27] MEDS: NovoLOG Insulin Flexpen SUBQ SCH ×2 (06:09→12:03)
[2017-02-27] MEDS: DuoNeb 0.5-3(2.5)mg/3ml neb HHN PRN (07:07)
[2017-02-27 08:00] VITALS: BP 128/68
[2017-02-27] MEDS: Heparin 5000 units/ml inj SUBQ SCH (08:21)
[2017-02-27] MEDS: Theophylline ER 100mg ORAL SCH (08:22)
--- NOTE | 2017-02-27 10:22 | Infectious Diseases Prog Note ---
Assessment/Plan Assessment/Plan :A The patient is a 66-year-old female with COPD exacerbation SOB, cough, and sputum production. Chest x-ray: NAPD History of vertigo. HTN Asthma Obesity Status post cholecystectomy. Uterine cancer Fibromyalgia Osteoarthritis Diabetes Schizophrenia PLAN: Cont on Zithromax d # 3 / 5 Monitor CBC Monitor BMP Monitor chest x-ray Monitor sputum culture Subjective Constitutional: Denies: anorexia, chills, drenching sweats, fatigue, fever, no symptoms, other Allergies: Coded Allergies: Dust (Verified Allergy, Mild, 04/18/11) METRONIDAZOLE (Verified Allergy, Mild, Itching, 11/18/14) LEVOFLOXACIN (Verified Adverse Reaction, Intermediate, 05/30/15) PROJECTILE VOMITING PER PATIENT STATEMENT. MORPHINE (Verified Adverse Reaction, Mild, 05/30/15) pain Objective Vital Signs Last 24 Hour Vital Signs Date Time Temp Pulse Resp B/P Pulse Ox O2 Delivery O2 Flow Rate FiO2 02/27/17 08:00 97.7 83 20 128/68 98 Nasal Cannula 2.0 02/27/17 07:26 85 17 95 Nasal Cannula 2.0 28 02/27/17 07:09 64 20 98 Nasal Cannula 2.0 28 02/27/17 07:07 77 18 Nasal Cannula 2.0 28 02/27/17 07:07 94 Nasal Cannula 2.0 28 02/27/17 07:07 Nasal Cannula 2.0 28 02/27/17 04:00 97.5 74 20 109/74 96 Room Air 02/27/17 00:00 97.7 90 20 93/61 96 Room Air 02/26/17 21:00 97.3 88 18 113/63 96 Room Air 02/26/17 19:07 98 Nasal Cannula 2.0 28 02/26/17 19:07 Nasal Cannula 2.0 28 02/26/17 19:06 87 18 Nasal Cannula 2.0 28 02/26/17 16:00 97.7 91 20 113/65 95 Room Air 02/26/17 12:00 98.1 66 19 120/66 94 Room Air Height (Feet): 5 Height (Inches): 4.00 Weight (Pounds): 188 HEENT: anicteric Respiratory/Chest: normal breath sounds Cardiovascular: normal rate Abdomen: soft, non tender Microbiology Date/Time Source Procedure Growth Status 02/25/17 23:00 Sputum Gram Stain - Final Resulted 02/25/17 23:00 Sputum Sputum Culture - Preliminary NORMAL UPPER RESPIRATORY EVANGELISTA PRESENT Resulted Current Medications Medications (Trade) Dose Ordered Sig/Ranulfo Route PRN Reason Start Time Stop Time Status Last Admin Dose Admin Acetaminophen (Tylenol) 650 mg Q4H PRN ORAL fever 02/24/17 16:00 03/26/17 15:59 Albuterol/ Ipratropium (DuoNeb 0.5-3(2.5)mg/3ml) 3 ml Q4H PRN HHN dyspnea 02/24/17 16:00 03/01/17 15:59 02/27/17 07:07 Azithromycin/ Dextrose (Zithromax/D5W) 275 ml @ 275 mls/hr Q24HRS IV 02/25/17 14:00 03/03/17 14:59 02/26/17 13:08 Clonidine HCl (Catapres) 0.1 mg Q4H PRN ORAL sbp more than 160 02/24/17 16:00 03/26/17 15:59 Dextrose STAT PRN IV Hypoglycemia 02/24/17 16:00 03/26/17 15:59 Heparin Sodium (Porcine) (Heparin 5000 units/ml) 5,000 units EVERY 12 HOURS SUBQ 02/24/17 21:00 03/26/17 20:59 Insulin Aspart (NovoLOG) BEFORE MEALS AND HS SUBQ 02/24/17 17:30 03/26/17 17:29 02/27/17 06:09 Lorazepam (Ativan 2mg/ml 1ml) 0.5 mg Q4H PRN IV For Anxiety 02/24/17 16:00 03/03/17 15:59 Methylprednisolone Sodium Succinate (Solu-MEDROL) 60 mg EVERY 6 HOURS IV 02/24/17 18:00 03/26/17 17:59 02/27/17 06:08 Nitroglycerin (Ntg) 0.4 mg Q5M X 3 DOSES PRN SL Prn Chest Pain 02/24/17 16:00 03/26/17 15:59 Ondansetron HCl (Zofran) 4 mg Q6H PRN IVP Nausea & Vomiting 02/24/17 16:00 03/26/17 15:59 Polyethylene Glycol (Miralax) 17 gm HSPRN PRN ORAL Constipation FIRST LINE AGENT 02/24/17 16:00 03/26/17 15:59 Promethazine HCl/ Codeine (Phenergan with Codeine) 5 ml Q4H PRN ORAL For Cough 02/24/17 16:00 03/26/17 15:59 02/27/17 01:21 Sennosides (Senokot) 8.6 mg DAILYPRN PRN ORAL Constipation SECOND LINE AGENT 02/24/17 16:00 03/26/17 15:59 Temazepam (Restoril) 15 mg HSPRN PRN ORAL Insomnia 02/24/17 16:00 03/03/17 15:59 Theophylline (Matthew-Dur) 100 mg EVERY 12 HOURS ORAL 02/24/17 21:00 03/26/17 20:59 02/26/17 21:22 NICK HERNANDEZ M.D. February 27, 2017 10:22
[2017-02-27 12:00] VITALS: BP 107/68
--- NOTE | 2017-02-27 21:45 | Pulmonology Progress Note ---
Assessment/Plan Problems: (1) COPD exacerbation (2) Chronic pain (3) HTN (hypertension) (4) Diabetes mellitus Assessment/Plan respiratory treatment IV antibiotics taper sterids check cultures on theophyline no cultures yet dc home today Subjective Interval Events: less cough, less short of breath Allergies: Coded Allergies: Dust (Verified Allergy, Mild, 04/18/11) METRONIDAZOLE (Verified Allergy, Mild, Itching, 11/18/14) LEVOFLOXACIN (Verified Adverse Reaction, Intermediate, 05/30/15) PROJECTILE VOMITING PER PATIENT STATEMENT. MORPHINE (Verified Adverse Reaction, Mild, 05/30/15) pain Objective Last 24 Hour Vital Signs Date Time Temp Pulse Resp B/P Pulse Ox O2 Delivery O2 Flow Rate FiO2 02/27/17 12:00 97.3 73 20 107/68 98 Nasal Cannula 2.0 02/27/17 08:00 97.7 83 20 128/68 98 Nasal Cannula 2.0 02/27/17 07:26 85 17 95 Nasal Cannula 2.0 28 02/27/17 07:09 64 20 98 Nasal Cannula 2.0 28 02/27/17 07:07 77 18 Nasal Cannula 2.0 28 02/27/17 07:07 94 Nasal Cannula 2.0 28 02/27/17 07:07 Nasal Cannula 2.0 28 02/27/17 04:00 97.5 74 20 109/74 96 Room Air 02/27/17 00:00 97.7 90 20 93/61 96 Room Air Intake and Output 02/26/17 02/27/17 19:00 07:00 Intake Total 840 ml 350 ml Balance 840 ml 350 ml Intake Oral 840 ml 350 ml # Voids 5 2 # Bowel Movements 1 Objective General Appearance: WD/WN HEENT: normocephalic Respiratory/Chest: chest wall non-tender, lungs clear Cardiovascular: normal peripheral pulses, regular rhythm Abdomen: normal bowel sounds, soft, non tender Genitourinary: normal external genitalia Extremities: no cyanosis, no clubbing Skin: no rash Lymphatic: no neck adenopathy, no groin adenopathy Microbiology Date/Time Source Procedure Growth Status 02/25/17 23:00 Sputum Gram Stain - Final Resulted 02/25/17 23:00 Sputum Sputum Culture - Preliminary NORMAL UPPER RESPIRATORY EVANGELISTA PRESENT Resulted DOYLE MENJIVAR February 27, 2017 21:45
--- NOTE | 2017-03-01 11:18 | Discharge Summary ---
Discharge Summary Hospital Course Date of Admission February 24, 2017 at 14:08 Date of Discharge February 27, 2017 at 13:00 Admitting Diagnosis COPD exacerbation HPI Arnoldo Her is a 66 year old female who was admitted on February 24, 2017 at 14:08 for Chronic Obstructive Pulmonary Disease Exacerbation Hospital Course [id number] Discharge Discharge Disposition Patient was discharged to Home (01) Discharge Diagnoses: Viry Frankel NP March 01, 2017 11:18
--- NOTE | 2017-03-02 03:49 | Discharge Summary 2 SIG ---
DATE OF ADMISSION: 02/24/2017 DATE OF DISCHARGE: 02/27/[address] MAGISTRATE: Gilbert Koroma M.D. BRIEF HOSPITAL COURSE: The patient is a 66-year-old female with history of COPD and congestive heart failure, presented to ED complaining of ongoing cough with congestion and sputum production and associated difficulty breathing. The patient already saw her primary care provider and was placed on prednisone, azithromycin and breathing treatments at home, however, symptoms persisted. On evaluation at ED, laboratories showed no leukocytosis. Chest x-ray showed no acute pulmonary disease due to failed outpatient therapy. The patient was admitted for further management. She was seen by Dr. Koroma for possible COPD and community-acquired pneumonia and was started on Zithromax and IV steroids. She was given respiratory treatments with bronchodilators and was started on theophylline. Sputum culture showed growth of Chelsie with upper respiratory kristel. She was eventually discharged home to continue antibiotic for five more days and inhalers. FINAL DIAGNOSES: 1. Acute chronic obstructive pulmonary disease exacerbation. 2. Possible community-acquired pneumonia. 3. Hypertension. 4. Diabetes mellitus. 5. Chronic pain. Fernando Lang M.D. I have been assigned to dictate discharge summary on this account and I was not involved in the patient's management. Viry Frankel N.P. DR: GILLES JOB#: [id number] CC:
== END 2017-02-27 13:00 | disposition home or self-care (01) | DRG 190 ==
LOC: EMR 13:08 → 4E 14:08 → EDBEDREQ 16:28
DX: J44.1 Chronic obstructive pulmonary disease with (acute) exacerbation (principal); J18.9 Pneumonia, unspecified organism; I10 Essential (primary) hypertension; J45.909 Unspecified asthma, uncomplicated; Z85.42 Personal history of malignant neoplasm of other parts of uterus; M79.7 Fibromyalgia; M19.90 Unspecified osteoarthritis, unspecified site; F20.9 Schizophrenia, unspecified; Z88.1 Allergy status to other antibiotic agents; Z88.6 Allergy status to analgesic agent; Z88.8 Allergy status to other drugs, medicaments and biological substances; E11.9 Type 2 diabetes mellitus without complications; G89.29 Other chronic pain; Z87.891 Personal history of nicotine dependence
CPT/HCPCS: 36415; 71010; 80053; 81003; 82550; 82553; 82962; 83880; 84484; 85007; 85025; 87070; 87205; 93005; 94640; 94664; 94760; J1815; J7620